=== PATIENT | female | born 1970 ===

== ENCOUNTER 2021-08-13 17:22 | Emergency (ER) | payer MEDICAID ==
[2021-08-13 18:00] VITALS: BP 142/79
--- NOTE | 2021-08-13 19:24 | Emergency Department Report ---
ED Extremity Problem HPI - General Chief complaint: Extremity Problem,Nontraumatic Stated complaint: Pain in left lower leg Time Seen by Provider: 08/13/21 18:03 Source: patient Mode of arrival: Ambulatory Limitations: No Limitations - History of Present Illness Initial comments: Patient is a 50-year-old female presents emergency room complaints of right leg pain and swelling that began yesterday. She denies any fall or injury. She denies any numbness or weakness. She is ambulatory. She states that the only new thing she did was that "she straddled her during intercourse but did not injure herself." She denies any fever or redness of the leg. No allergies to medications. - Related Data Previous Rx's Medication Instructions Recorded Last Taken Type Naproxen 375 mg PO BID PRN #14 tablet 08/13/21 Unknown Rx methOCARBAMOL [Robaxin TAB] 500 mg PO BID PRN #14 tab 08/13/21 Unknown Rx Allergies Allergy/AdvReac Type Severity Reaction Status Date / Time No Known Allergies Allergy Unverified 08/13/21 17:53 ED Review of Systems ROS: Stated complaint: Pain in left lower leg Other details as noted in HPI Comment: All other systems reviewed and negative ED Past Medical Hx - Medications Home Medications: Home Medications Medication Instructions Recorded Confirmed Last Taken Type Naproxen 375 mg PO BID PRN #14 tablet 08/13/21 Unknown Rx methOCARBAMOL [Robaxin TAB] 500 mg PO BID PRN #14 tab 08/13/21 Unknown Rx ED Physical Exam - General Limitations: No Limitations General appearance: alert, in no apparent distress - Head Head exam: Present: atraumatic, normocephalic - Eye Eye exam: Present: normal appearance - ENT ENT exam: Present: mucous membranes moist - Respiratory Respiratory exam: Present: normal lung sounds bilaterally. Absent: respiratory distress, wheezes, rales, rhonchi, stridor, chest wall tenderness, accessory muscle use, decreased breath sounds, prolonged expiratory - Cardiovascular Cardiovascular Exam: Present: regular rate, normal rhythm. Absent: normal heart sounds, systolic murmur, diastolic murmur, rubs, gallop - Extremities Exam Extremities exam: Present: other (ttp to the right posterior calf and right posterior knee, mild edema, no skin changes, neurovascularly intact, no bony ttp, FROM) - Neurological Exam Neurological exam: Present: alert, oriented X3 - Psychiatric Psychiatric exam: Present: normal affect, normal mood - Skin Skin exam: Present: warm, dry, intact ED Course Vital Signs 08/13/21 17:54 Temperature 98.5 F Pulse Rate 82 Respiratory 18 Rate Blood Pressure 142/79 [Right] O2 Sat by Pulse 99 Oximetry ED Medical Decision Making - Radiology Data Radiology results: report reviewed Ordering Physician: EMILY NOLAND Date of Service: 08/13/21 Procedure(s): VL venous duplex LE RT Accession Number(s): [id number] cc: EMILY NOLAND Right lower extremity Doppler venous ultrasound INDICATION: Edema FINDINGS: The right common femoral vein, superficial femoral vein and popliteal vein have normal compressibility and phasic flow. IMPRESSION: No evidence for DVT. Signer Name: Drew Obando MD Signed: 08/13/2021 8:46 PM Workstation Name: [id number] Transcribed By: CW Dictated By: KRISTIE OBANDO MD Electronically Authenticated By: KRISTIE OBANDO MD Signed Date/Time: 08/13/212045 DD/ 44 TD/TT: - Medical Decision Making Patient is a 50-year-old female presents emergency room complaints of right leg pain and swelling that began yesterday. She denies any fall or injury. She denies any numbness or weakness. She is ambulatory. She states that the only new thing she did was that "she straddled her during intercourse but did not injure herself." She denies any fever or redness of the leg. No allergies to medications. Vitals are stable. On exam:ttp to the right posterior calf and right posterior knee, mild edema, no skin changes, neurovascularly intact, no bony ttp, FROM. Ultrasound right lower extremity No evidence for DVT. Patient has no signs of infection, cellulitis, and septic joint. Symptoms could be related to muscle strain. Discussed supportive care and symptomatic treatment with patient. Discussed the importance of primary care follow-up. Advised patient Please take medication as prescribed as needed. Follow-up with your primary care doctor. May wear compression stockings. Elevate your legs. Decrease your sodium intake. Return to emergency room for any new or worsening symptoms. Critical care attestation.: If time is entered above; I have spent that time in minutes in the direct care of this critically ill patient, excluding procedure time. ED Disposition Clinical Impression: Right leg pain, Leg swelling Disposition: 01 HOME / SELF CARE / HOMELESS Is pt being admited?: No Does the pt Need Aspirin: No Condition: Stable Additional Instructions: Please take medication as prescribed as needed. Follow-up with your primary care doctor. May wear compression stockings. Elevate your legs. Decrease your sodium intake. Return to emergency room for any new or worsening symptoms. Prescriptions: Naproxen 375 mg PO BID PRN #14 tablet PRN Reason: pain methOCARBAMOL [Robaxin TAB] 500 mg PO BID PRN #14 tab PRN Reason: muscle spasm/pain Referrals: MADAY HERNANDEZ NP [Primary Care Provider] - 3-5 Days Time of Disposition: 20:58 Print Language: LUXEMBOURGER
--- NOTE | 2021-08-13 20:50 | Vascular Lab Report ---
Right lower extremity Doppler venous ultrasound INDICATION: Edema FINDINGS: The right common femoral vein, superficial femoral vein and popliteal vein have normal comp ressibility and phasic flow. IMPRESSION: No evidence for DVT. Signer Name: Drew Sen MD Signed: 08/13/2021 8:46 PM Workstation Name: [id number]
== END 2021-08-13 23:04 | disposition home or self-care (01) ==
LOC: ED 17:22
DX: M79.604 Pain in right leg (principal); M79.89 Other specified soft tissue disorders
CPT/HCPCS: 99283